=== PATIENT | female | born 1965 | race Caucasian/White ===

== ENCOUNTER 2017-03-08 17:10 | Emergency (ER) | payer OTHER ==
[~2017-03-08] VITALS: Ht 172.7 cm; Wt 61.5 kg
[~2017-03-08 17:10] MED LIST: CARI350T PO; LORA-446 PO; MELO15TA6 PO; OXYC10TA6 PO
[2017-03-08 17:12] VITALS: BP 135/88
[2017-03-08] MEDS ORDERED: IBUPROFEN 200 MG TABLET PO ONE (17:30)
[2017-03-08] MEDS ORDERED: DIPH,PERTUSS(ACELL),TET VAC/PF 0.5 ML IM-VACC ONE ×2 (17:30→17:34)
[2017-03-08] MEDS ORDERED: IBUPROFEN 200 MG TABLET ONE (17:34)
[2017-03-08] MEDS ORDERED: OXYcodone/APAP 5/325MG TABLET ONE (18:14)
[2017-03-08] MEDS ORDERED: OXYcodone/APAP 5/325MG TABLET PO ONE (18:30)
== END 2017-03-08 18:29 | disposition home or self-care (01) ==
LOC: ED 18:00
DX: S83.512A Sprain of anterior cruciate ligament of left knee, initial encounter (principal); F17.200 Nicotine dependence, unspecified, uncomplicated; W01.0XXA Fall on same level from slipping, tripping and stumbling without subsequent striking against object, initial encounter; Y93.89 Activity, other specified; Y92.89 Other specified places as the place of occurrence of the external cause; Y99.9 Unspecified external cause status
CPT/HCPCS: 29505; 90471; 90715

== ENCOUNTER → 2017-06-06 | Outpatient (CLI) | payer MEDICAID | END | disposition home or self-care (01) | LOC: RAD 18:44 | PROVIDERS: ATTEND Internal Medicine | DX: M17.0 Bilateral primary osteoarthritis of knee (principal); M25.461 Effusion, right knee ==

== ENCOUNTER → 2017-08-15 | Outpatient (CLI) | payer MEDICAID | END | disposition home or self-care (01) | LOC: RAD 15:12 | PROVIDERS: ATTEND Internal Medicine | DX: R22.1 Localized swelling, mass and lump, neck (principal) | CPT/HCPCS: 70490 ==

== ENCOUNTER 2018-01-23 13:27 | Emergency (ER) | payer MEDICAID ==
[~2018-01-23] VITALS: Ht 172.7 cm; Wt 61.4 kg
[2018-01-23 13:31] VITALS: BP 156/93
== END 2018-01-23 15:32 | disposition home or self-care (01) ==
LOC: ED 13:52
DX: K02.9 Dental caries, unspecified (principal); I10 Essential (primary) hypertension; M19.90 Unspecified osteoarthritis, unspecified site; F17.200 Nicotine dependence, unspecified, uncomplicated
CPT/HCPCS: 99283

== ENCOUNTER 2018-02-13 15:50 | Emergency (ER) | payer MEDICAID ==
[~2018-02-13] VITALS: Ht 172.7 cm; Wt 63.8 kg
[2018-02-13] MEDS ORDERED: METHOCARBAMOL 750 MG TABLET PO ONE (16:00)
[2018-02-13] MEDS ORDERED: KETOROLAC 30 MG/1 ML IM ONE (16:00)
[2018-02-13] MEDS ORDERED: HYDROcodone/APAP 5/325 TABLET PO STA (16:18)
[2018-02-13] MEDS ORDERED: METHOCARBAMOL 750 MG TABLET ONE (16:27)
[2018-02-13] MEDS ORDERED: HYDROcodone/APAP 5/325 TABLET ONE (16:28)
[2018-02-13] MEDS ORDERED: KETOROLAC 30 MG/1 ML ONE (16:28)
[2018-02-13 17:40] VITALS: BP 142/87
== END 2018-02-13 17:42 | disposition home or self-care (01) ==
LOC: ED 16:21
DX: G89.29 Other chronic pain (principal); M54.2 Cervicalgia; M54.12 Radiculopathy, cervical region; I10 Essential (primary) hypertension
CPT/HCPCS: 72050; 96372; 99284; J1885; J7512

== ENCOUNTER 2019-10-25 19:21 | Emergency (ER) | payer MEDICAID ==
[~2019-10-25] VITALS: Ht 170.2 cm; Wt 63.3 kg
[2019-10-25 19:37] VITALS: BP 136/93
--- NOTE | 2019-10-25 20:12 | NUR ---
PT AMBULATORY TO IMAGING.
== END 2019-10-25 21:08 | disposition home or self-care (01) ==
LOC: ED 19:58
DX: S64.21XA Injury of radial nerve at wrist and hand level of right arm, initial encounter (principal); I10 Essential (primary) hypertension; F17.200 Nicotine dependence, unspecified, uncomplicated; X58.XXXA Exposure to other specified factors, initial encounter; Y93.89 Activity, other specified; Y92.89 Other specified places as the place of occurrence of the external cause; Y99.8 Other external cause status
CPT/HCPCS: 29125; 99283

== ENCOUNTER 2019-11-05 07:49 | Emergency (ER) | payer MEDICAID ==
[~2019-11-05] VITALS: Ht 170.2 cm; Wt 62.4 kg
--- NOTE | 2019-11-05 08:01 | NUR ---
PATIENT WHEELED BACK FROM TRIAGE WITH CHIEF COMPLAINT OF LLQ PAIN SINCE 8 PM YESTERDAY EVENING. PATIENT STATES IT HURTS WORSE WHEN SHE STANDS UP OR WALKS. PAIN C/O 10/25 PAIN AT THIS TIME, DENIES PAINFUL URINATION OR INCREASED URINARY FREQUENCY. PATIENT IS A&OX4, NO APPARENT SIGNS OF DISTRESS. Addendum: 11/05/19 at 0806 by [email or web address] PATIENT STATES WHEN THE PAIN IS SEVERE SHE FEELS NAUSEATED.
[2019-11-05] MEDS ORDERED: MORPHINE SULFATE 4 MG/ML, 1ML ONE ×2 (08:12→09:02)
[2019-11-05] MEDS ORDERED: ONDANSETRON 2MG/ML, 2ML ONE (08:12)
[2019-11-05] MEDS: MORPHINE SULFATE 4 MG/ML, 1ML IVPush PRN ×2 (08:15→09:04)
--- NOTE | 2019-11-05 08:19 | NUR ---
20 GAUGE IV PLACED, AND PATIENT MEDICATED PER eMAR. BLOOD WORK DRAWN AND SENT TO LAB. PATIENT AMBULATED WITH STEADY GAIT TO BATHROOM.
[2019-11-05 08:29] LABS: BASOPHILS # (AUTO) 0.04 x10^3/uL (0-0.1); BASOPHILS % (AUTO) 1 % (0-1); EOSINOPHILS # (AUTO) 0.14 x10^3/uL (0-0.4); EOSINOPHILS % (AUTO) 2 % (1-7); LYMPHOCYTES # (AUTO) 2.31 x10^3/uL (1-3.4); LYMPHOCYTES % (AUTO) 30 % (22-44); MD NO; MEAN CORPUSCULAR HEMOGLOBIN 28.3 pg (27.0-34.8); MEAN CORPUSCULAR HGB CONC 32.2 g/dL (32.4-35.8); MEAN CORPUSCULAR VOLUME 87.6 fL (80-100); MEAN PLATELET VOLUME 7.3 fL (7.4-10.4); MONOCYTES # (AUTO) 0.37 x10^3/uL (0.2-0.8); MONOCYTES % (AUTO) 5 % (2-9); NEUTROPHILS # (AUTO) 4.93 x10^3/uL (1.8-6.8); NEUTROPHILS % (AUTO) 63 % (42-75); PLATELET COUNT 276 x10^3/uL (130-400); RED BLOOD COUNT 4.84 x10^6/uL (3.82-5.3)
[2019-11-05] MEDS ORDERED: SODIUM CHLORIDE FLUSH 10ML SYR IVF ONE (08:30)
[2019-11-05] MEDS ORDERED: ONDANSETRON 2MG/ML, 2ML IVPush ONE (08:30)
--- NOTE | 2019-11-05 08:35 | NUR ---
URINE COLLECTED AND WALKED TO LAB.
[2019-11-05 08:39] LABS: ALBUMIN 3.4 g/dL (3.4-5.0); ANION GAP 7 mmol/L (5-15); CALCIUM 8.6 mg/dL (8.5-10.1); CHLORIDE 105 mmol/L (98-107); CREATININE 0.82 mg/dL (0.55-1.02)
[2019-11-05 08:48] LABS: MICROSCOPIC INDICATED
--- NOTE | 2019-11-05 09:00 | NUR ---
PATIENT LAYING IN GURNEY, CONNECTED TO VITAL SIGN MACHINE, CALL LIGHT WITHIN REACH. C/O 11/25 LLQ PAIN, STATES PAIN GOT WORSE "AFTER I WALKED TO THE BATHROOM."
--- NOTE | 2019-11-05 09:04 | NUR ---
PATIENT MEDICATED PER eMAR.
[2019-11-05 10:20] VITALS: BP 102/64
--- NOTE | 2019-11-05 10:20 | NUR ---
SBAR GIVEN TO JORDY DUFFY AT PATIENT BEDSIDE FOR TRANSFER OF CARE. PATIENT REPORTS PAIN RELIEF FROM SECOND DOSE OF MORPHINE. PATIENT ASKING FOR WATER, INFORMED PATIENT WE WILL WAIT UNTIL WE GET ABD CT RESULTS, PATIENT ACKNOWLEDGED. CALL LIGHT WITHIN REACH, NO FURTHER NEEDS AT THIS TIME.
--- NOTE | 2019-11-05 10:30 | NUR ---
PT TO CT NOW. PT STATES POSITIVE REIEF OF PAIN FROM MEDICATION. PT ENCOURAGED TO NOTIFIY RN IF PAIN BECOMES INTOLERABLE.
[2019-11-05] MEDS ORDERED: OMNIPAQUE 350 MG/ML, 100ML BOTTLE ONE (10:49)
== END 2019-11-05 11:19 | disposition home or self-care (01) ==
LOC: ED 08:34
DX: R10.32 Left lower quadrant pain (principal); K59.00 Constipation, unspecified; M51.36 Other intervertebral disc degeneration, lumbar region; M43.16 Spondylolisthesis, lumbar region; I10 Essential (primary) hypertension; F17.290 Nicotine dependence, other tobacco product, uncomplicated
CPT/HCPCS: 36415; 74177; 80048; 81001; 82040; 85025; 87086; 96374; 96375; 96376; 99285; J2270; J2405; Q9967

== ENCOUNTER 2020-01-25 12:39 | Emergency (ER) | payer MEDICAID ==
[~2020-01-25] VITALS: Ht 170.2 cm; Wt 60.8 kg
--- NOTE | 2020-01-25 13:54 | NUR ---
PT CAME IN CO OF JUNE, FEVER, CHILLS, BODY ACHES, SOB. PT STATES SHE CLEANED SOMEONES HOUSE WHO TESTED POSITIVE FOR COVID AND SHE WANTED TO GET CLEARED. PT RESTING IN [facility]. CONNECTED TO MONITORING EQUIPMENT. NAD
[2020-01-25 14:30] LABS: BASOPHILS % (AUTO) 0 % (0-1); EOSINOPHILS % (AUTO) 0 % (1-7); LYMPHOCYTES % (AUTO) 35 % (22-44); MEAN CORPUSCULAR HEMOGLOBIN 27.9 pg (27.0-34.8); MEAN CORPUSCULAR HGB CONC 32.7 g/dL (32.4-35.8); MEAN PLATELET VOLUME 7.5 fL (7.4-10.4); MONOCYTES % (AUTO) 6 % (2-9); NEUTROPHILS % (AUTO) 59 % (42-75); PLATELET COUNT 224 x10^3/uL (130-400); RED BLOOD COUNT 5.02 x10^6/uL (3.82-5.3); RED CELL DISTRIBUTION WIDTH 14.6 % (9.6-15.2)
[2020-01-25 14:34] LABS: ALBUMIN 3.3 g/dL (3.4-5.0); ANION GAP 5 mmol/L (5-15); CALCIUM 8.2 mg/dL (8.5-10.1); CHLORIDE 105 mmol/L (98-107)
[2020-01-25 14:36] LABS: MD NO
[2020-01-25 14:38] LABS: CREATININE 0.78 mg/dL (0.55-1.02)
[2020-01-25 14:39] LABS: ALANINE AMINOTRANSFERASE 25 U/L (12-78); ALKALINE PHOSPHATASE 74 U/L (45-117); BILIRUBIN,TOTAL 0.3 mg/dL (0.2-1.0); TOTAL PROTEIN 7.3 g/dL (6.4-8.2)
[2020-01-25] MEDS ORDERED: ONDANSETRON ODT 4 MG PO PRN (15:30)
[2020-01-25] MEDS ORDERED: DIPHENHYDRAMINE 25 MG CAPSULE PO ONE (15:30)
[2020-01-25] MEDS ORDERED: CEFTRIAXONE 1,000 MG IM ONE (15:30)
[2020-01-25] MEDS ORDERED: KETOROLAC 30 MG/1 ML IM ONE (15:30)
[2020-01-25] MEDS ORDERED: CEFTRIAXONE 1,000 MG ONE (15:33)
[2020-01-25] MEDS ORDERED: DIPHENHYDRAMINE 25 MG CAPSULE ONE (15:33)
[2020-01-25] MEDS ORDERED: KETOROLAC 30 MG/1 ML ONE (15:33)
[2020-01-25] MEDS ORDERED: ONDANSETRON ODT 4 MG ONE (15:33)
[2020-01-25 15:39] VITALS: BP 113/78
== END 2020-01-25 16:58 | disposition home or self-care (01) ==
LOC: ED 15:30
DX: U07.1 COVID-19 (principal); J15.9 Unspecified bacterial pneumonia; I10 Essential (primary) hypertension
CPT/HCPCS: 71045; 80053; 85025; 87635; 96372; 99284; J0696; J1885; Q0162; Q0163

== ENCOUNTER 2020-07-26 19:17 | Emergency (ER) | payer MEDICAID ==
[~2020-07-26] VITALS: Ht 172.7 cm; Wt 63.4 kg
[2020-07-26 19:54] LABS: BASOPHILS % (AUTO) 1 % (0-1); EOSINOPHILS % (AUTO) 1 % (1-7); LYMPHOCYTES % (AUTO) 30 % (22-44); MEAN CORPUSCULAR HEMOGLOBIN 27.9 pg (27.0-34.8); MEAN CORPUSCULAR HGB CONC 33.4 g/dL (32.4-35.8); MEAN PLATELET VOLUME 7.3 fL (7.4-10.4); MONOCYTES % (AUTO) 6 % (2-9); NEUTROPHILS % (AUTO) 62 % (42-75); PLATELET COUNT 316 x10^3/uL (130-400); RED BLOOD COUNT 5.14 x10^6/uL (3.82-5.3)
[2020-07-26 19:55] LABS: MD NO
[2020-07-26 20:05] LABS: ALANINE AMINOTRANSFERASE 30 U/L (12-78); ALBUMIN 3.5 g/dL (3.4-5.0); ANION GAP 5 mmol/L (5-15); CALCIUM 8.8 mg/dL (8.5-10.1); CHLORIDE 104 mmol/L (98-107); CREATININE 0.68 mg/dL (0.55-1.02)
[2020-07-26 20:09] LABS: ALKALINE PHOSPHATASE 78 U/L (45-117); BILIRUBIN,TOTAL 0.2 mg/dL (0.2-1.0); TOTAL PROTEIN 7.4 g/dL (6.4-8.2)
--- NOTE | 2020-07-26 21:15 | NUR ---
PT IN ROOM
[2020-07-26 21:50] LABS: MICROSCOPIC AUTO
--- NOTE | 2020-07-26 22:27 | NUR ---
Pt in NAD, RR equal and unlabored. Bilat feet swelling, left foot with 2+ pitting, no pain, no redness. Denies SOB.
[2020-07-26 22:50] VITALS: BP 135/71
--- NOTE | 2020-07-26 22:51 | NUR ---
dc home with instruct, pt verbalizes understanding of f/u, return to er if worse or concerns. vss
== END 2020-07-26 22:52 | disposition home or self-care (01) ==
LOC: ED 22:15
DX: I87.2 Venous insufficiency (chronic) (peripheral) (principal); R60.0 Localized edema; R00.0 Tachycardia, unspecified; I10 Essential (primary) hypertension; F17.210 Nicotine dependence, cigarettes, uncomplicated
CPT/HCPCS: 36415; 71045; 80053; 81001; 83880; 85025; 93005; 93970; 99285; 99406